=== PATIENT | female | born 1965 | race Two or more races ===

== ENCOUNTER 2017-10-03 20:49 | Emergency (ER) | payer SELFPAY ==
[~2017-10-03] VITALS: Ht 154.9 cm; Wt 91.0 kg
[2017-10-03] MEDS ORDERED: KETOROLAC 60MG/2ML VIAL IM STA (22:52)
[2017-10-03 23:32] VITALS: BP 147/90
== END 2017-10-03 23:50 | disposition home or self-care (01) ==
LOC: ER 20:49
DX: M54.6 Pain in thoracic spine (principal); R51 Headache; F17.200 Nicotine dependence, unspecified, uncomplicated; Z88.6 Allergy status to analgesic agent; Z88.8 Allergy status to other drugs, medicaments and biological substances
CPT/HCPCS: 71045; 96372; 99283; J1885

== ENCOUNTER 2018-02-15 17:26 | Emergency (ER) | payer SELFPAY ==
[~2018-02-15] VITALS: Ht 154.9 cm; Wt 92.0 kg
[~2018-02-15 17:26] MED LIST: ASPIRIN; GABAPENTIN; XARELTO
[2018-02-15] MEDS ORDERED: HYDROCODONE/ACETAMINOPHEN 5/325MG TABLET PO ONE (19:15)
[2018-02-15] MEDS ORDERED: KETOROLAC 60MG/2ML VIAL IM ONE (19:15)
[2018-02-15 20:35] VITALS: BP 126/90
== END 2018-02-15 21:29 | disposition home or self-care (01) ==
LOC: ER 17:26
DX: M79.661 Pain in right lower leg (principal); I10 Essential (primary) hypertension; F17.200 Nicotine dependence, unspecified, uncomplicated; Z86.718 Personal history of other venous thrombosis and embolism; Z90.49 Acquired absence of other specified parts of digestive tract; Z98.890 Other specified postprocedural states; Z88.8 Allergy status to other drugs, medicaments and biological substances; Z88.6 Allergy status to analgesic agent
CPT/HCPCS: 73560; 93971; 96372; 99284; J1885

== ENCOUNTER 2018-05-05 19:01 | Emergency (ER) | payer SELFPAY | END 2018-05-05 21:13 | disposition left against medical advice (07) | LOC: ER 19:01 | DX: Z53.21 Procedure and treatment not carried out due to patient leaving prior to being seen by health care provider (principal); Z88.6 Allergy status to analgesic agent; Z88.8 Allergy status to other drugs, medicaments and biological substances ==

== ENCOUNTER 2018-11-24 00:36 | Emergency (ER) | payer MEDICAID ==
[~2018-11-24] VITALS: Ht 154.9 cm; Wt 87.0 kg
[2018-11-24] MEDS ORDERED: ONDANSETRON HCL 4MG/2ML INJ IV STA (01:49)
[2018-11-24] MEDS ORDERED: MORPHINE SULFATE 4 MG/ML CPJ (NOT FOR IM USE) IV STA (01:49)
[2018-11-24 02:39] LABS: BASOPHILS % 1.3 % (0.0-2.0); HEMATOCRIT. 38.9 % (36.0-48.0); HEMOGLOBIN. 13.2 g/dL (12.0-16.0); LYMPHOCYTES % 37.1 % (20.0-50.0); MEAN CORPUSCULAR HEMOGLOBIN 30.6 pg (28.0-32.0); MEAN PLATELET VOLUME 8.9 fl (7.4-10.4); MONOCYTES % 7.5 % (2.0-8.0); NEUTROPHILS % 51.1 % (40.0-76.0); PLATELET 296 x1000/uL (130-400); RED BLOOD CELL COUNT 4.32 mill/uL (4.2-5.4); RED CELL DISTRIBUTION WIDTH 15.2 % (11.6-14.6)
[2018-11-24 04:30] VITALS: BP 139/81
== END 2018-11-24 04:30 | disposition home or self-care (01) ==
LOC: ER 00:36
DX: S09.8XXA Other specified injuries of head, initial encounter (principal); S39.012A Strain of muscle, fascia and tendon of lower back, initial encounter; I10 Essential (primary) hypertension; F17.200 Nicotine dependence, unspecified, uncomplicated; W06.XXXA Fall from bed, initial encounter; Y93.89 Activity, other specified; Y92.9 Unspecified place or not applicable; Z88.8 Allergy status to other drugs, medicaments and biological substances; Z79.82 Long term (current) use of aspirin; Z86.718 Personal history of other venous thrombosis and embolism; Z98.890 Other specified postprocedural states
CPT/HCPCS: 36415; 70450; 71045; 72100; 72125; 80048; 85025; 93005; 96374; 96375; 99284; J2270; J2405

== ENCOUNTER 2019-02-10 20:29 | Emergency (ER) | payer MEDICAID ==
[~2019-02-10] VITALS: Ht 162.6 cm; Wt 87.0 kg
[2019-02-10] MEDS ORDERED: ONDANSETRON HCL 4MG/2ML INJ IV STA (22:50)
[2019-02-10] MEDS ORDERED: MORPHINE SULFATE 4 MG/ML CPJ (NOT FOR IM USE) IV STA (22:50)
[2019-02-10] MEDS ORDERED: SODIUM CHLORIDE 0.9% 1,000 ML IV ONE (22:50)
[2019-02-10 23:21] LABS: CHLORIDE 102 mEq/L (98-107)
[2019-02-10 23:25] LABS: PARTIAL THROMBOPLASTIN TIME 30.8 sec (23.4-31.0)
[2019-02-10 23:26] LABS: BASOPHILS % 0.8 % (0.0-2.0); EOSINOPHILS % 2.6 % (0.0-5.0); HEMOGLOBIN. 13.2 g/dL (12.0-16.0); LYMPHOCYTES % 30.4 % (20.0-50.0); MEAN CORPUSCULAR HEMOGLOBIN 31.3 pg (28.0-32.0); MEAN CORPUSCULAR VOLUME 92.4 fL (81.0-99.0); MEAN PLATELET VOLUME 8.2 fl (7.4-10.4); MONOCYTES % 5.8 % (2.0-8.0); NEUTROPHILS % 60.4 % (40.0-76.0); PLATELET 342 x1000/uL (130-400); RED BLOOD CELL COUNT 4.22 mill/uL (4.2-5.4); RED CELL DISTRIBUTION WIDTH 13.8 % (11.6-14.6)
[2019-02-11] MEDS ORDERED: ONDANSETRON HCL 4MG/2ML INJ IV STA (00:24)
[2019-02-11] MEDS ORDERED: MORPHINE SULFATE 4 MG/ML CPJ (NOT FOR IM USE) IV STA (00:24)
[2019-02-11 01:28] VITALS: BP 135/82
[2019-02-11] MEDS ORDERED: IOHEXOL-350 100 ML BOTTLE ONE (02:11)
== END 2019-02-11 01:29 | disposition home or self-care (01) ==
LOC: ER 20:29
DX: R51 Headache (principal); I67.1 Cerebral aneurysm, nonruptured; I10 Essential (primary) hypertension; Z86.718 Personal history of other venous thrombosis and embolism
CPT/HCPCS: 36415; 70496; 71045; 80053; 81025; 85025; 85610; 85730; 86850; 86900; 86901; 93005; 96374; 96375; 96376; 99284; J2270; J2405; J7030; Q9967; Z7610

== ENCOUNTER 2019-07-02 17:21 | Emergency (ER) | payer MEDICAID ==
[~2019-07-02] VITALS: Ht 154.9 cm; Wt 91.0 kg
[2019-07-02] MEDS ORDERED: ACETAMINOPHEN WITH CODEINE 300/30MG TABLET PO STA (17:53)
[2019-07-02 18:56] LABS: BASOPHILS % 1.2 % (0.0-2.0); EOSINOPHILS % 1.8 % (0.0-5.0); HEMATOCRIT. 40.5 % (36.0-48.0); HEMOGLOBIN. 13.8 g/dL (12.0-16.0); LYMPHOCYTES % 24.3 % (20.0-50.0); MEAN CORPUSCULAR HEMOGLOBIN 31.1 pg (28.0-32.0); MEAN CORPUSCULAR VOLUME 91.2 fL (81.0-99.0); MEAN PLATELET VOLUME 7.8 fl (7.4-10.4); MONOCYTES % 6.7 % (2.0-8.0); PLATELET 344 x1000/uL (130-400); RED BLOOD CELL COUNT 4.44 mill/uL (4.2-5.4); RED CELL DISTRIBUTION WIDTH 13.7 % (11.6-14.6)
[2019-07-02 19:04] LABS: INR 0.9; PROTHROMBIN TIME 10.2 sec (9.6-11.0)
[2019-07-02 19:07] LABS: CHLORIDE 109 mEq/L (98-107)
[2019-07-02] MEDS ORDERED: MORPHINE SULFATE 10 MG/ML CPJ IM ONE (20:00)
[2019-07-02 20:47] VITALS: BP 137/67
== END 2019-07-02 20:50 | disposition home or self-care (01) ==
LOC: ER 17:21
DX: R51 Headache (principal); I10 Essential (primary) hypertension; Z90.49 Acquired absence of other specified parts of digestive tract; Z88.8 Allergy status to other drugs, medicaments and biological substances; Z86.718 Personal history of other venous thrombosis and embolism; Z98.890 Other specified postprocedural states
CPT/HCPCS: 36415; 70450; 80053; 85025; 85610; 96372; 99284; J2270

== ENCOUNTER 2019-08-01 14:55 | Emergency (ER) | payer MEDICAID ==
[~2019-08-01] VITALS: Ht 162.6 cm; Wt 91.0 kg
[2019-08-01 16:50] VITALS: BP 105/71
[2019-08-01] MEDS ORDERED: HYDROCODONE/ACETAMINOPHEN 5/325MG TABLET PO STA ×2 (17:04→18:05)
== END 2019-08-01 19:17 | disposition home or self-care (01) ==
LOC: ER 14:55
DX: S00.93XA Contusion of unspecified part of head, initial encounter (principal); L21.0 Seborrhea capitis; I10 Essential (primary) hypertension; I67.1 Cerebral aneurysm, nonruptured; Z88.8 Allergy status to other drugs, medicaments and biological substances; Z86.718 Personal history of other venous thrombosis and embolism; W22.8XXA Striking against or struck by other objects, initial encounter; Y93.89 Activity, other specified; Y92.89 Other specified places as the place of occurrence of the external cause; Y99.8 Other external cause status
CPT/HCPCS: 99284